=== PATIENT | female | born 1980 | race African-American/Black ===

== ENCOUNTER 2016-04-18 12:44 | Emergency (ER) | payer SELFPAY ==
--- NOTE | 2016-04-18 14:02 | ERRECORD ---
[facility] EMERGENCY RECORD HPI URI (13:24 JLOY) CHIEF COMPLAINT: Patient presents for evaluation of nasal congestion, Patient presents for evaluation of cough, Patient presents for evaluation of 9 days of cough and congestion. Worse at night. Taking mucinex liquid with no help. No fever. HISTORIAN: History provided by patient. LOCATION: No localizing symptoms. TIME COURSE: Gradual onset of symptoms, There has been no change in the patient's symptoms over time, are constant. ASSOCIATED WITH: No associated chest pain, No associated chills, No associated fever, No associated headache, No associated shortness of breath. EXACERBATED BY: Patient's condition exacerbated by nothing. RELIEVED BY: Patient's condition relieved by nothing. ROS (13:25 JLOY) CONSTITUTIONAL: Historian denies chills, denies fever. ENT: Historian reports rhinorrhea, denies sore throat. RESPIRATORY: Historian reports cough, denies shortness of breath, reports sputum. clear. GI: Historian denies abdominal pain, denies nausea, denies vomiting. diarrhea x1 today. GENITOURINARY FEMALE: Historian denies dysuria, denies frequency, denies hematuria. MUSCULOSKELETAL: Historian denies back pain. SKIN: Historian denies rash, denies skin changes. NEUROLOGIC: Historian denies dizziness, denies headache. PAST MEDICAL HISTORY MEDICAL HISTORY: Notes: fibroids, heavy menstrual bleeding. Flu vaccine not up to date, Tetanus immunization up to date, Pneumococcal vaccine not up to date, Past medical history includes gynecologic history, dysfunctional uterine bleeding, uterine fibroid, Past medical history includes hematological history, iron deficiency anemia. (13:03 LHAL) FEMALE SURGICAL HISTORY: Surgical history of hysterectomy, Date of surgery MAY 2015, Surgical history of tubal ligation. (13:03 LHAL) PSYCHIATRIC HISTORY: No previous psychiatric history. (13:03 LHAL) SOCIAL HISTORY: Patient drinks socially, Patient denies drug use, Patient currently uses tobacco, smokes cigarettes, SMOKES SOCIALLY, WHEN DRINKING. (13:03 LHAL) FAMILY HISTORY: Notes: fibroids. (13:03 LHAL) NOTES: Nursing records reviewed, Agree with nursing records. (13:26 JLOY) KNOWN ALLERGIES NKDA (Unconfirmed) No Known Drug Allergies &a-1R&a+25V*p+0X*b4336P*c202B*c15G*c2P*p-0X&a-25V&a+1R Name: Jhoana Lott : 1980 F35 MedRec: [id number] AcctNum: [id number] Prepared: MonApr 18, 2016 13:35 by Interface Page 1 of 2 pMD [facility] EMERGENCY RECORD CURRENT MEDICATIONS (MonApr 18, 2016 13:02 LHAL) None VITAL SIGNS (12:53 LHAL) VITAL SIGNS: BP: 155/78 (Sitting), Pulse: 89 (Regular), Resp: 18 (Non-Labored), Temp: 99.1 (Oral), Pain: 4 (Constant), O2 sat: 97 on Room Air, Time: 04/18/2016 12:53. PHYSICAL EXAM (13:25 JLOY) CONSTITUTIONAL: Vital signs reviewed, Patient appears non toxic, Patient alert and oriented to person, place and time. EYES: Eye exam included findings of eyelids normal to inspection, Pupils equally round and reactive to light, Conjunctiva normal. ENT: Pharynx exam normal, Uvula exam normal, Tonsil exam normal, Mouth exam normal, mucous membranes moist. NECK: Neck exam included findings of normal range of motion, Trachea midline, no cervical adenopathy. RESPIRATORY CHEST: Respiratory exam included findings of no respiratory distress, Breath sounds clear, No wheezing, No rales, No rhonchi, Chest exam included findings of chest movement symmetrical. CARDIOVASCULAR: Cardiovascular exam included findings of heart rate regular rate and rhythm, Heart sounds normal. NEURO: [place] coma scale 15, Neuro exam findings include patient oriented to person, place and time, Speech normal. PSYCHIATRIC: Normal affect. PROBLEM LIST No recorded problems DIAGNOSIS (13:23 JLOY) FINAL: PRIMARY: Acute URI. PRESCRIPTION (13:22 JLOY) Tessalon Perles: CAPSULE (HARD, SOFT, ETC.) : 100 mg : ORAL : Quantity: 100-200 Unit: mg Route: ORAL Schedule: every 8 hours PRN Dispense: 30 May substitute. Refills: No Refills . NOTES: No Refills. DISPOSITION PATIENT: Disposition Type: Discharge, Disposition: *Discharge Home. (13:23 JLOY) Patient left the department. (13:30 AL) Murdock: JLOY=MD Pepe, David LHAL=MONALISA Diaz, Monica &a-1R&a+25V*p+0X*u1760K*c202B*c15G*c2P*p-0X&a-25V&a+1R Name: Shadia Lottmilesshivamra Rosario : 1980 F35 MedRec: [id number] AcctNum: [id number] Prepared: [facility] Apr 18, 2016 13:35 by Interface Page 2 of 2 pMD MTDD
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
== END 2016-04-18 13:27 | disposition home health service, planned readmission (86) ==
LOC: NAV ERS 12:44
DX: J06.9 Acute upper respiratory infection, unspecified (principal); Z90.710 Acquired absence of both cervix and uterus; Z98.51 Tubal ligation status
CPT/HCPCS: 99283

== ENCOUNTER 2016-08-02 13:32 | Emergency (ER) | payer SELFPAY | END 2016-08-02 14:06 | disposition home or self-care (01) | LOC: NAV ERS 13:32 | DX: G56.01 Carpal tunnel syndrome, right upper limb (principal); F17.210 Nicotine dependence, cigarettes, uncomplicated | CPT/HCPCS: 99283 ==

== ENCOUNTER 2017-01-22 14:23 | Emergency (ER) | payer OTHER, SELFPAY ==
[2017-01-22] MEDS ORDERED: Ondansetron ODT 4 MG TAB ONE (14:53)
[2017-01-22] MEDS ORDERED: Adacel (T-DAP) 0.5 ML VIAL ONE (15:03)
[2017-01-22] MEDS ORDERED: Fluorescein Opthalmic Strip ONE ×2 (15:30→16:44)
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
[2017-01-22] MEDS ORDERED: HYDROcodone/Acetaminophen 10/325 mg Tablet ONE (17:10)
== END 2017-01-22 17:27 | disposition home or self-care (01) ==
LOC: NAV ERS 14:23
DX: S00.12XA Contusion of left eyelid and periocular area, initial encounter (principal); M32.9 Systemic lupus erythematosus, unspecified; F17.210 Nicotine dependence, cigarettes, uncomplicated; Y00.XXXA Assault by blunt object, initial encounter; Y92.59 Other trade areas as the place of occurrence of the external cause
CPT/HCPCS: 70450; 70486; 90471; 90715; 96372; J2270; Q0162